=== PATIENT | female | born 1950 | race Caucasian/White ===

== ENCOUNTER 2017-09-15 02:52 | Outpatient (CLI) | payer MEDICARE, OTHER ==
[~2017-09-15 02:52] MED LIST: ASPI-10 PO; ATOR40TA PO; ESCI20TA38 PO; INSU100C4 SQ; LANTUS SQ; LEVO125T8 PO; NAPR220C15 PO
== END 2017-09-15 23:59 | disposition home or self-care (01) ==
LOC: DIABETIC 02:52
PROVIDERS: ATTEND Specialist
DX: E11.65 Type 2 diabetes mellitus with hyperglycemia (principal)
CPT/HCPCS: G0108